=== PATIENT | male | born 1945 | race Hispanic/Latino ===

== ENCOUNTER 2017-08-15 06:17 | Day surgery (SDC) | payer MEDICARE ==
[2017-08-15] MEDS ORDERED: NACL 0.9% 500 ML 500 ML IV SCH (07:00)
[2017-08-15 07:14] LABS: Basophils # (Auto) 0.1 K/mm3 (0.0-0.1); Basophils % (Auto) 0.9 % (0.0-1.8); Eosinophils # (Auto) 0.5 K/mm3 (0.0-0.4); Eosinophils % (Auto) 5.4 % (0.0-4.3); Hemoglobin 15.3 gm/dl (11.8-15.2); Lymphocytes % (Auto) 23.7 % (13.4-35.0); Mean Corpuscular HGB Conc 35 % (32-34); Mean Corpuscular Hemoglobin 31 pg (28-32); Mean Corpuscular Volume 89 fl (84-94); Monocytes # (Auto) 0.7 K/mm3 (0.0-0.8); Monocytes % (Auto) 8.5 % (0.0-7.3); Platelet Count 169 K/mm3 (140-440); Red Blood Count 4.93 M/mm3 (3.65-5.03); Red Cell Distribution Width 12.8 % (13.2-15.2)
[2017-08-15 07:24] LABS: INR 0.94 (0.87-1.13)
[2017-08-15 07:25] LABS: Partial Thromboplastin Time 31.4 Sec. (24.2-36.6)
[2017-08-15] MEDS ORDERED: VERSED IV ONE (08:37)
[2017-08-15] MEDS ORDERED: SUBLIMAZE ONE (08:38)
[2017-08-15 08:54] VITALS: BP 168/88
--- NOTE | 2017-08-15 09:02 | Short Stay Summary ---
Short Stay Documentation Date of service: 08/15/17 - History Principal diagnosis: ESRD Past Medical History: ESRD Social history: no significant social history - Allergies and Medications Current Medications: Allergies No Known Allergies Allergy (Verified 10/14/13 11:22) Home Medications Medication Instructions Recorded Confirmed Last Taken Type Calcitriol [Rocaltrol] 0.5 mcg PO QDAY 08/15/17 08/15/17 08/14/17 History Ergocalciferol [Vitamin D2] 1 cap PO QWEEK 08/15/17 08/15/17 08/11/17 History Lisinopril [Zestril TAB] 2.5 mg PO QDAY 08/15/17 08/15/17 08/14/17 History Rosuvastatin Calcium [Crestor] 10 mg PO DAILY 08/15/17 08/15/17 08/14/17 History amLODIPine [Norvasc] 5 mg PO DAILY 08/15/17 08/15/17 08/14/17 History Active Medications Sodium Chloride (Nacl 0.9% 500 Ml) 500 mls @ 50 mls/hr IV DIRECT JAQUELINE - Physical exam General appearance: no acute distress Integumentary: no rash HEENT: Atraumatic Lungs: Normal air movement Breasts: deferred Heart: Regular rate Gastrointestinal: normal Male Genitourinary: deferred Rectal Exam: deferred Extremities: no ischemia - Brief post op/procedure progress note Date of procedure: 08/15/17 Pre-op diagnosis: ESRD Post-op diagnosis: same Procedure: Noted CT guided evaluation of kidneys, cortical thicknesses less than one half of the centimeters and is not amenable to biopsy. Anesthesia: none Surgeon: SIMON GARCIA Estimated blood loss: none Pathology: none Condition: stable - Disposition Condition at discharge: Good Disposition: DC-01 TO HOME OR SELFCARE Short Stay Discharge Plan Activity: advance as tolerated Weight Bearing Status: Weight Bear as Tolerated Diet: regular Follow up with: JAYSHREE ALEXIS MD [Primary Care Provider] - 7 Days
--- NOTE | 2017-08-15 09:03 | Event Note ---
Date: 08/15/17 Patient was brought to the CT suite and placed in prone position on the examination table. Initial images of the kidneys were obtained. The patient has significant medical renal disease with atrophic kidneys and cortical thinning so that the thickness of the cortex is 1/2 cm or less. This is not amenable to percutaneous biopsy. The procedure was therefore not performed.
--- NOTE | 2017-08-15 11:20 | Cat Scan Report ---
Exam: Limited CT of the abdomen Clinical indication: CT performed in anticipation of renal biopsy Date: 08/15/2017 Procedure: Following an explanation of the risks, benefits and alternatives; written informed consent was obtained and the patient was brought to the CT suite and placed on the gantry in the prone position. A limited CT of the abdomen was performed for anatomic localization and preoperative planning for a renal biopsy. The visualized lung bases are clear. A the visualized portions of the liver, spleen, and, adrenal glands are normal in appearance. The pancreas is unremarkable. Visualized vascular structures demonstrate atherosclerotic calcification. Images of the kidneys demonstrate markedly oracle thinning. The cyst is present at the lower pole of the left kidney. Cortical calcifications are present within the right kidney. There is no dilation of the collecting system. Impression: 1) CT of the abdomen performed in anticipation of renal biopsy demonstrates cortical thinning so significant that renal biopsy is not safe to perform.
== END 2017-08-15 09:30 | disposition home or self-care (01) ==
LOC: CATHLABREC 06:17 → EDSTATUS 07:30 → CATHLABREC 09:30
PROVIDERS: ATTEND Internal Medicine Nephrology
DX: N26.1 Atrophy of kidney (terminal) (principal); N28.89 Other specified disorders of kidney and ureter; N18.6 End stage renal disease; Z53.8 Procedure and treatment not carried out for other reasons
CPT/HCPCS: 36415; 74150; 85025; 85610; 85730; 86850; 86900; 86901; J2250; J3010

== ENCOUNTER 2018-02-04 08:42 | Outpatient (CLI) | payer MEDICARE ==
--- NOTE | 2018-02-04 14:46 | Mammography Report ---
BILATERAL DIGITAL DIAGNOSTIC MAMMOGRAM with CAD and BILATERAL BREAST ULTRASOUND: 02/04/18 09:00:00 CLINICAL: 72-year-old male with right mastodynia. COMPARISON:None. FINDINGS: Relatively fatty breasts.Mild/moderate right subareolar fibroglandular densities and minimal left subareolar fibroglandular densities. No mass, architectural distortion or suspicious calcifications. Ultrasound of both breasts (including all four quadrants and the retroareolar area of each breast) was performed and demonstrated normal fibroglandular no mass, cyst or shadowing. Mild right subareolar fibroglandular structures and minimal left subareolar fibroglandular structures. Ultrasound of bilateral axillae demonstrated benign lymph nodes with central fat. No suspicious lymph nodes. IMPRESSION: Bilateral benign gynecomastia, right greater than left. BI-RADS CATEGORY: 2 -- Benign RECOMMENDATION: Clinical follow-up. COMMENT: Patient follow-up letters are generated by our [employer] application.
== END 2018-02-04 08:43 | disposition home or self-care (01) ==
LOC: MAMMO 08:42
PROVIDERS: ATTEND Internal Medicine
DX: N62 Hypertrophy of breast (principal); I10 Essential (primary) hypertension; E78.00 Pure hypercholesterolemia, unspecified; Z87.891 Personal history of nicotine dependence; Z90.49 Acquired absence of other specified parts of digestive tract; Z90.89 Acquired absence of other organs
CPT/HCPCS: 77066